=== PATIENT | male | born 1940 | race Caucasian/White ===

== ENCOUNTER 2020-08-22 11:59 | Emergency (ER) | payer MEDICARE, OTHER ==
[~2020-08-22] VITALS: Ht 182.9 cm; Wt 92.5 kg
[~2020-08-22 11:59] MED LIST: ALBU90OI6 INH; ALEN70 PO; ALL DAY ALLERGY10 M1 PO; ALLO300; ALLO300 PO; ALTOPREV PO; AMLO5 PO; ASPI325 PO; ASPI325EC PO; ASPI500 PO; ASPI81EC; ASPI81EC PO; Altoprev60 MG PO; CALCA500CH PO; CALCIUM PO; CETI10 PO; CYAN1000 PO; CYCL10 PO; DOCU100 PO; ECOTRIN PO; ERGO400 PO; FLUSAL1005; FLUSAL2505 IH; FLUSAL2505 INH; FOLI400 PO; HYDACE5; HYDACE5 PO; HYDACE5325 PO; HYDACE7.5 PO; IBUP800 PO; LEVO750; LISI5; MELA3 PO; META800 PO; METO100ER; METO50ER PO; Medi-Meclizine25 MG PO; NAPR500 PO; NICO21TP; OMEP20ER; OMEP20ER PO; OMEPRAZOLE MAGN20 MG PO; OXYACE5T PO; PRAV20; SACC250C PO; SENN187; SERT100; SERT100 PO; WARF5 PO; Zithromax250 MG PO; Zofran4 MG PO
[2020-08-22 13:27] LABS: BASOPHILS ABSOLUTE AUTO 0.04 K/mm3 (0.00-0.23); BASOPHILS PERCENT AUTO 1 % (0-2); EOSINOPHILS ABSOLUTE AUTO 0.21 K/mm3 (0.00-0.68); EOSINOPHILS PERCENT AUTO 4 % (0-6); Hematocrit 38.9 % (37.0-53.0); IMMATURE GRAN ABSOLUTE AUTO 0.02 K/mm3 (0.00-0.10); IMMATURE GRAN PERCENT AUTO 0 % (0-1); LYMPHOCYTES PERCENT AUTO 32 % (21-46); MONOCYTES ABSOLUTE AUTO 0.43 K/mm3 (0.16-1.47); MONOCYTES PERCENT AUTO 7 % (4-13); Mean Corpuscular HGB 31.6 pg (26.0-34.0); Mean Corpuscular HGB Conc 33.4 g/dL (31.5-36.5); Mean Corpuscular Volume 95 fL (80-100); Mean Platelet Volume 10.6 fL (9.1-12.4); NEUTROPHILS ABSOLUTE AUTO 3.36 K/mm3 (1.96-9.15); NEUTROPHILS PERCENT AUTO 56 % (41-73); Platelet Count 140 K/mm3 (150-400); RDW Coefficient Variation 13.4 % (11.7-14.2); RDW Standard Deviation 46.5 fL (35.1-46.3); Red Blood Cell Count 4.11 M/mm3 (4.30-5.90); White Blood Cell Count 5.96 K/mm3 (4.00-11.30)
[2020-08-22 13:58] LABS: Alanine Aminotransfer (ALT/SGP 14 U/L (12-78); Albumin, Blood 3.8 g/dL (3.4-5.0); Albumin/Globulin Ratio 1.3 (0.8-1.8); Alk Phos 44 U/L (50-136); Anion Gap 1 mmol/L (6-16); Aspartate Aminotrans (AST/SGOT 13 U/L (12-37); Bilirubin, Total 0.4 mg/dL (0.1-1.0); Blood Urea Nitrogen 15 mg/dL (8-24); CO2, Blood 32 mmol/L (21-32); Calcium, Blood 8.8 mg/dL (8.5-10.1); Chloride, Blood 106 mmol/L (98-108); Creatinine, Blood 1.07 mg/dL (0.60-1.20); Glomerular Filtration Rate >60 (60-); Glucose, Blood 101 mg/dL (70-99); Potassium, Blood 4.2 mmol/L (3.5-5.5); Sodium, Blood 139 mmol/L (136-145); Total Protein, Blood 6.8 g/dL (6.4-8.2)
== END 2020-08-22 15:14 | disposition home or self-care (01) ==
LOC: ER 11:59
PROVIDERS: Physician Assistant
DX: I63.89 Other cerebral infarction (principal); H53.9 Unspecified visual disturbance; R42 Dizziness and giddiness; J44.9 Chronic obstructive pulmonary disease, unspecified; E78.00 Pure hypercholesterolemia, unspecified; K21.9 Gastro-esophageal reflux disease without esophagitis; F17.210 Nicotine dependence, cigarettes, uncomplicated; Z88.8 Allergy status to other drugs, medicaments and biological substances; Z79.899 Other long term (current) drug therapy; Z79.82 Long term (current) use of aspirin; Z86.73 Personal history of transient ischemic attack (TIA), and cerebral infarction without residual deficits
CPT/HCPCS: 36415; 70450; 80053; 85025; 93005; 93010; 99284-25

== ENCOUNTER 2020-12-01 10:14 | Day surgery (SDC) | payer MEDICARE, OTHER ==
[~2020-12-01] VITALS: Ht 177.8 cm; Wt 92.1 kg
[~2020-12-01 10:14] MED LIST changes: +ADVAIR INH; +ALBU90OI INH; +GUAI600T33 PO; +SPIRIVA INH
--- NOTE | 2020-12-01 11:04 | NUR ---
PATIENTE HERE FOR A DEAN. PRE OPERATIVE CHARTING, PIV INSERTED AND BASLINE VS OBTAINED.
--- NOTE | 2020-12-01 12:13 | NUR ---
1214 DEAN COMPLETED, RECOVERY BEGUN. CONTINUOUS BEDSIDE MONITORING AND O2
--- NOTE | 2020-12-01 12:20 | NUR ---
RT AT THE BEDSIDE FOR A BREATHING TREATMENT FOR WHEEZING. HOB UP AND TREATMENT IN PROGRESS. ANESTHESIA REMIANS AT THE BEDSIDE.
== END 2020-12-02 00:20 | disposition home or self-care (01) ==
LOC: MHTC 10:14 → ORD 10:14 → ORSCMMR 10:14 → MHTC 10:30 → ORSCMMR 10:30
DX: I34.0 Nonrheumatic mitral (valve) insufficiency (principal); I63.9 Cerebral infarction, unspecified; I10 Essential (primary) hypertension; E78.5 Hyperlipidemia, unspecified; F17.200 Nicotine dependence, unspecified, uncomplicated; Z88.8 Allergy status to other drugs, medicaments and biological substances
CPT/HCPCS: 93312; 93325; 94640; A9270; J2704; J7120

== ENCOUNTER 2021-04-25 07:35 | Day surgery (SDC) | payer MEDICARE, OTHER ==
[~2021-04-25] VITALS: Ht 177.8 cm; Wt 89.3 kg
== END 2021-04-25 10:03 | disposition home or self-care (01) ==
LOC: ORSCSDS 07:35
PROVIDERS: Ophthalmology
PROC: 08RJ3JZ Replacement of Right Lens with Synthetic Substitute, Percutaneous Approach (ICD-10-PCS; principal; 2021-04-25 09:00)
DX: H25.11 Age-related nuclear cataract, right eye (principal); I10 Essential (primary) hypertension; Z86.73 Personal history of transient ischemic attack (TIA), and cerebral infarction without residual deficits; G47.33 Obstructive sleep apnea (adult) (pediatric); I63.9 Cerebral infarction, unspecified; J44.9 Chronic obstructive pulmonary disease, unspecified; F17.210 Nicotine dependence, cigarettes, uncomplicated; Z79.82 Long term (current) use of aspirin; Z79.899 Other long term (current) drug therapy
CPT/HCPCS: J2001; J2250; J3301; J7040; V2632

== ENCOUNTER 2021-05-16 08:16 | Day surgery (SDC) | payer MEDICARE, OTHER ==
[~2021-05-16] VITALS: Ht 177.8 cm; Wt 89.5 kg
[~2021-05-16 08:16] MED LIST changes: +Crestor20 MG PO; +Flonase 0.05% N16 GM; +MECL25 PO; +ONDA4 PO; +ZYRTEC10 M2 PO
--- NOTE | 2021-05-16 08:38 | NUR ---
05/16/21 0838 Nina Guillermo TETRACAINE AT 0828 AND PLEDGET AT 0829 BOTH ADMINISTERED TOP LEFT EYE PER ORDERS
== END 2021-05-16 10:16 | disposition home or self-care (01) ==
LOC: ORSCSDS 08:16
PROVIDERS: Ophthalmology
PROC: 08RJ3JZ Replacement of Right Lens with Synthetic Substitute, Percutaneous Approach (ICD-10-PCS; principal; 2021-05-16 09:30)
DX: H25.12 Age-related nuclear cataract, left eye (principal); J44.9 Chronic obstructive pulmonary disease, unspecified; Z86.73 Personal history of transient ischemic attack (TIA), and cerebral infarction without residual deficits; I10 Essential (primary) hypertension; I63.9 Cerebral infarction, unspecified; Z87.891 Personal history of nicotine dependence; Z79.82 Long term (current) use of aspirin; Z79.899 Other long term (current) drug therapy
CPT/HCPCS: J2001; J2250; J3010; J3301; J7040; V2632

== ENCOUNTER 2022-01-19 11:18 | Emergency (ER) | payer MEDICARE, OTHER ==
[~2022-01-19] VITALS: Ht 177.8 cm; Wt 93.0 kg
== END 2022-01-19 13:10 | disposition home or self-care (01) ==
LOC: ER 11:18
DX: R04.0 Epistaxis (principal); J44.9 Chronic obstructive pulmonary disease, unspecified; K21.9 Gastro-esophageal reflux disease without esophagitis; F17.210 Nicotine dependence, cigarettes, uncomplicated; Z79.899 Other long term (current) drug therapy; Z88.8 Allergy status to other drugs, medicaments and biological substances; Z79.82 Long term (current) use of aspirin; Z86.73 Personal history of transient ischemic attack (TIA), and cerebral infarction without residual deficits
CPT/HCPCS: 36415; A9270

== ENCOUNTER 2022-01-20 20:11 | Inpatient (IN) | payer MEDICARE, OTHER ==
[~2022-01-20] VITALS: Ht 177.8 cm; Wt 88.2 kg
[2022-01-20 20:25] LABS: Calcium, Ionized (POC) 1.06 mmol/L (1.10-1.46); Chloride (POC) 106 mmol/L (98-108); Creatinine (POC) 1.2 mg/dL (0.8-1.3); Glucose (ISTAT POC) 152 mg/dL (70-99); Hemoglobin (POC) 12.9 g/dL (13.5-17.5); Potassium (POC) 3.4 mmol/L (3.5-5.5); Sodium (POC) 141 mmol/L (135-148); Total CO2 (POC) 26 mmol/L (21-32)
[2022-01-20 20:35] LABS: BASOPHILS ABSOLUTE AUTO 0.03 K/mm3 (0.00-0.23); BASOPHILS PERCENT AUTO 1 % (0-2); EOSINOPHILS ABSOLUTE AUTO 0.22 K/mm3 (0.00-0.68); EOSINOPHILS PERCENT AUTO 4 % (0-6); Hematocrit 35.9 % (37.0-53.0); Hemoglobin 12.2 g/dL (13.5-17.5); IMMATURE GRAN ABSOLUTE AUTO 0.02 K/mm3 (0.00-0.10); IMMATURE GRAN PERCENT AUTO 0 % (0-1); LYMPHOCYTES ABSOLUTE AUTO 2.09 K/mm3 (0.84-5.20); LYMPHOCYTES PERCENT AUTO 34 % (21-46); MONOCYTES ABSOLUTE AUTO 0.45 K/mm3 (0.16-1.47); MONOCYTES PERCENT AUTO 7 % (4-13); Mean Corpuscular HGB 31.1 pg (26.0-34.0); Mean Corpuscular Volume 92 fL (80-100); Mean Platelet Volume 10.4 fL (9.1-12.4); NEUTROPHILS ABSOLUTE AUTO 3.42 K/mm3 (1.96-9.15); NEUTROPHILS PERCENT AUTO 55 % (41-73); Platelet Count 144 K/mm3 (150-400); RDW Coefficient Variation 13.6 % (11.7-14.2); Red Blood Cell Count 3.92 M/mm3 (4.30-5.90); White Blood Cell Count 6.23 K/mm3 (4.00-11.30)
[2022-01-20 20:51] LABS: Albumin, Blood 3.4 g/dL (3.4-5.0); Albumin/Globulin Ratio 1.1 (0.8-1.8); Bilirubin, Total 0.3 mg/dL (0.1-1.0); Bun/Creatinine Ratio 9.7 (12.0-20.0); Calcium, Blood 8.7 mg/dL (8.5-10.1); Creatine Kinase MB 1.7 ng/mL (0.0-3.6); Creatinine, Blood 1.13 mg/dL (0.60-1.20); Globulin, Blood 3.2 g/dL (2.2-4.0); Potassium, Blood 3.5 mmol/L (3.5-5.5); Total Protein, Blood 6.6 g/dL (6.4-8.2)
[2022-01-20 20:52] LABS: International Normalized Ratio 0.98; Prothrombin Time Results 10.3 Sec (9.7-11.5)
[2022-01-20 23:57] LABS: Source, Urine Foley catheter
[2022-01-21 00:04] LABS: Bilirubin, Urine Neg (Neg); Blood, Urine 1+ (Neg); Glucose Qualitative, Urine Neg (Neg); Ketones, Urine Neg (Neg); Leukocyte Esterase, Urine Neg (Neg); Nitrite, Urine Neg (Neg); Protein, Urine 1+ (Neg); Urobilinogen, Urine NORM (Normal)
[2022-01-21 00:24] LABS: Appearance, Urine Hazy (Clear); Color, Urine Pale Yellow (P-Yellow)
[2022-01-21 00:25] LABS: Amorphous Mod (0-Heavy); Bacteria Rare /hpf; Mucus Light (0-Heavy); Red Blood Cells, Urine 0-2 /hpf (0-2); Squamous Epithelial Cells Not Seen /hpf (Few); White Blood Cells, Urine Not Seen /hpf (0-5)
--- NOTE | 2022-01-21 00:47 | NUR ---
NEW ADMIT FROM SYSTEMS INTEGRATION ADVISOR TO ICU 12: NEW PT ADMIT FROM SYSTEMS INTEGRATION ADVISOR TO ICU 12 ARRIVED TO UNIT AT 2217. PT POST PCI WITH A STENT PLACED IN PROX-MID RCA. TR BAND IN PLACE OVER R. RADIAL ACCESS THAT IS ASSESSED WITH SYSTEMS INTEGRATION ADVISOR RN UPON ARRIVIAL; SITE LOOKS GOOD WITH NO BLEEDING OR HEMATOMA NOTED. PER DR COLVIN TR BAND WILL REMAIN IN PLACE FOUR HOURS AFTER INITIAL TR BAND PLACEMENT THAT TOOK PLACE AT 2159. PT IS INTUBATED AND SEDATED UPON ARRIVAL; PROPOFOL GTT AT 40 MCG AND VENT SETTINGS AC/VC 16/550/5/60% UPON ARRIVAL, ETT 8.0, 24 @ GUMS AT ARRIVAL. CXR ORDERED AND PER DR COLON ETT ADVANCED BY FITZ JAMISON BY 2 CM, ETT PLACEMENT 26 @ GUMS AT THIS TIME. SPO2 98<, RR 16-18, AND LUNG SOUNDS CLEAR T/O. PT ON ZOLL MONITOR WHEN HE ARRIVED, AND THEN PLACED ON BEDSIDE MONITOR. DEFIB PADS LEFT IN PLACE. PT HR IN THE 60'S WITH SBP 110'S AT THIS TIME. PT IS RESPONDING TO PAIN/TOUCH STIMULI AND PULLING AWAY. PT NOT IN RESTRAINTS WHEN BROUGHT TO THE UNIT AND PLACED IN BILAT SOFT WRIST RESTRAINTS AT 2231. PT CONTINUES TO PULL ON RESTRAINTS, PROPOFOL GTT TITRATED UP TO 45 AT THIS TIME. PT HAS OGT IN PLACE UPON ARRIVAL THAT IS CLAMPED; CXR ORDERED AT THIS TIME TO CONFIRM OGT AND ETT PLACEMENT. PT HAS HYPOACTIVE BS IN ALL QUADRANTS; ABD ROUND, SOFT AND NON-TENDER. TEMP VARGAS PLACED BY THIS RN WITH URINE SAMPLE SENT TO LAB; VARGAS DRAINING TO GRAVITY WITH URINE CLEAR AND YELLOW. PT SKIN WARM, INTACT AND PPP X 4. PT HAS TWO PIV: 18 G RAC, 20 G LH. PT CAREGIVER, ROWENA AT BEDSIDE AFTER PT IS SETTLED AND UPDATED ON PT'S STATUS POST PCI, ALL QUESTIONS ANSWERED AT THIS TIME. PT'S WILL BE BY IN THE MORNING. BED LOWERED, WILL CONTINUE TO MONITOR.
[2022-01-21 03:32] LABS: BASOPHILS ABSOLUTE AUTO 0.03 K/mm3 (0.00-0.23); BASOPHILS PERCENT AUTO 1 % (0-2); EOSINOPHILS ABSOLUTE AUTO 0.12 K/mm3 (0.00-0.68); EOSINOPHILS PERCENT AUTO 2 % (0-6); Hematocrit 32.7 % (37.0-53.0); Hemoglobin 11.3 g/dL (13.5-17.5); IMMATURE GRAN ABSOLUTE AUTO 0.01 K/mm3 (0.00-0.10); IMMATURE GRAN PERCENT AUTO 0 % (0-1); LYMPHOCYTES ABSOLUTE AUTO 1.62 K/mm3 (0.84-5.20); LYMPHOCYTES PERCENT AUTO 27 % (21-46); MONOCYTES ABSOLUTE AUTO 0.46 K/mm3 (0.16-1.47); MONOCYTES PERCENT AUTO 8 % (4-13); Mean Corpuscular HGB 30.6 pg (26.0-34.0); Mean Corpuscular HGB Conc 34.6 g/dL (31.5-36.5); Mean Corpuscular Volume 89 fL (80-100); Mean Platelet Volume 10.3 fL (9.1-12.4); NEUTROPHILS ABSOLUTE AUTO 3.85 K/mm3 (1.96-9.15); NEUTROPHILS PERCENT AUTO 63 % (41-73); Platelet Count 116 K/mm3 (150-400); RDW Coefficient Variation 13.7 % (11.7-14.2); RDW Standard Deviation 44.5 fL (35.1-46.3); Red Blood Cell Count 3.69 M/mm3 (4.30-5.90); White Blood Cell Count 6.09 K/mm3 (4.00-11.30)
[2022-01-21 03:52] LABS: Bun/Creatinine Ratio 11.9 (12.0-20.0); Calcium, Blood 8.5 mg/dL (8.5-10.1); Creatinine, Blood 1.01 mg/dL (0.60-1.20); Potassium, Blood 3.1 mmol/L (3.5-5.5)
--- NOTE | 2022-01-21 06:24 | NUR ---
SHIFT SUMMARY: NO ACUTE CHANGES SINCE ARRIVAL TO THE UNIT FROM MANAGER CHILD. TR BAND DEFLATED COMPLETELY AND REMOVED AT 0400; TEGADERM IN PLACE AND SITE IS WITHOUT BLEEDING, SMALL HEMATOMA AROUND INSERTION SITE ABOUT 3 CM IN DIAMETER. VENT SETTINGS AC/VC 14/510/5/35% WITH RR 14-16 AND SPO2 98<. PT HAS CLEAR LUNG SOUNDS WITH SMALL EPISODES OF COUGHING WITH REPOSITIONING. VSS THROUGHOUT SHIFT. WILL CONTINUE TO MONITOR UNTIL ONCOMING RN ARRIVES.
--- NOTE | 2022-01-21 06:28 | NUR ---
SHIFT SUMMARY: NO ACUTE CHANGES THIS SHIFT. PT REMAINS ON PRECEDEX GTT @ 0.7. PT ABLE TO SQUEEZE HANDS AND ALERT TO VERBAL STIMULI. PT VERBILIZED ANXIETY/FEAR IN THE MIDDLE OF THE NIGHT AND WAS ABLE TO CLEARLY STATE NAME AND BIRTHDATE CORRECTLY; PT MEDICATED WITH 0.5 MG OF ATIVAN AT THAT TIME. PT WAS ABLE TO SETTLE AND GO BACK TO SLEEP. VSS STABLE THROUGHOUT THE SHIFT, PT REMAINS TACHYPNENIC THROUGHOUT SHIFT WITH RR 30-34 AND SPO2 94<. WILL CONTINUE TO MONITOR UNTIL ONCOMING RN ARRIVES.
--- NOTE | 2022-01-21 07:15 | NUR ---
Assumed care of pt at 0700 Report recieved from offgoing RN at bedside. Pt is sedated on Propofol at 35mcg/kg/min. On vent AC/VC 14/510 peep 5, FIO2 30%. SR-SB with first degree AV block. Next EKG due this am, BP currently 127/73. OGT in place to LIS. Temp probe de oliveira draining clear yellow urine. Has 2 PIV infusing Propofol and Potassium replacement as well as NS TKO. Right radial side with no changes, small hematoma has not been increasing in size, pt has armboard in place. Call placed to spouse Star to provide update on pt status. Spouse has limited ability to care for self and has a caregiver at home, she would like to come in after pt is extubated. Advised I would keep her updated. Dr. Tejada to bedside. Orders recieved and placed for Lactate, ABG, CXR and decrease sedation/begin weaning. Plan to extubate today if appropriate. RN to continue to monitor.
[2022-01-21 07:36] LABS: PCO2 Arterial 39 mmHg (35-45); PO2 Arterial 91 mmHg (80-100); pH Blood Arterial 7.46 (7.35-7.45)
--- NOTE | 2022-01-21 09:49 | NUR ---
PROPOFOL ON STANDBY PT HAS TOLERATED NO SEDATION WELL. CALM, COOPERATIVE AND FOLLOWING COMMANDS. HAD EKG, LACTATE, ABG AND ECHO THIS AM. ON SPONTANEOUS VENT SETTINGS. DR. OVERTON NOTIFIED OF ABOVE. WILL PLAN TO EXUTBATE THIS AM APPROPRIATE. DR. ESTRADA IN TO SEE PT AT BEDSIDE. NO NEW ORDERS. RN TO CONTINUE TO FOLLOW
--- NOTE | 2022-01-21 16:21 | NUR ---
STATUS CHANGE PT REMAINS A/O X4, HARD OF HEARING, FAMILY WILL BRING HEARING AIDS TOMORROW. SINUS RHYTHM WITH 1ST DEGREE AV BLOCK. SBP 130'S. DENIES PAIN. IS ON ROOM AIR WITH OXYGEN SATURATIONS OF 98%. LUNGS CLEAR THROUGHOUT, LOOSE COUGH, NO SPUTUM PRODUCTION. PT IS A DAILY SMOKER AND HAS A CHRONIC COUGH PER FAMILY. HAS BEEN NPO DUE TO PRESENCE OF ETT, TOLERATING SMALL SIPS SINCE EXTUBATION. TEMP PROBE VARGAS IN PLACE DRAINING CLEAR YELLOW URINE. TMAX 100.O. RECIEVED DOWNGRADE TO PCU ORDERS FROM . AWAITING BED AVAILABILITY FOR TRANSFER. RN TO CONTINUE TO MONITOR.
--- NOTE | 2022-01-21 18:56 | NUR ---
END OF SHIFT SUMMARY PT REMAINS A/OX4, SLEPT FOR SEVERAL HOURS AFTER EXTUBATION, DENIES PAIN, C/O SLIGHT DISCOMFORT IN HIS ABDOMEN, PT UNABLE TO DEFINE FURTHER. DENIES NAUSEA. SINUS RHYTHM, BP WNL. LUNGS CLEAR, HAS LOOSE NON-PRODUCTIVE COUGH. PT IS CURRENT SMOKER AND HAS A CHRONIC COUGH PER FAMILY. DIET ORDERED THIS EVENING, PT IS HUNGRY. HAS TEMP PROBE VARGAS, UO 650ML THIS SHIFT CLEAR YELLOW. SKIN INTACT. RIGHT RADIAL CATH SITE IS C/D/I. SMALL HEMATOMA WITH NO CHANGE. NOTIFIED DR. ESTRADA OF TEMP 101. TYLENOL PO ORDERED AND GIVEN, BLOOD CULTURES X2 ORDERED AND COMPLETED BY LAB. FAMILY UPDATED ON ALL ASPECTS OF CARE. ADMISSION ASSESSMENT COMPLETED VIA PHONE WITH PT'S . FAMILY BROUGHT IN PT'S HEARING AIDS AND PT HAS GLASSES AT BEDSIDE.
--- NOTE | 2022-01-21 19:15 | NUR ---
ASSUMPTION OF CARE PT IS ALERT AND ORIENTED X4, HARD OF HEARING. HE IS SITTING UP IN BED, AFFECT APPROPRIATE AND ABLE TO MAKE NEEDS KNOWN. NO COMPLAINTS OF CHEST PAIN/PRESSURE. SR ON THE MONITOR, BP WAL. MD ANTHONY MADE AWARE ON PRIOR SHIFT. PT ON ROOM AIR, OXYGEN SAT 94%. NO S/S OF ACUTE DISTRESS NOTED AT THIS TIME. PT IS SL. VARGAS CATH INTACT PATENT AND DRAINING YELLOW URINE TO GRAVITY BELOW THE LEVEL OF THE BLADDER.
--- NOTE | 2022-01-21 21:31 | NUR ---
PT CONTINUES TO BE AFEBRILE AT 101 CORE TEMP DESPITE BEING MEDICATED W/TYLENOL EARLIER IN THE DAY. HE IS COMPLAINING OF NAUSEA WELL AND GENERALIZED MALAISE. DR BROWNING NOTIFIED.
[2022-01-21 22:01] LABS: BASOPHILS ABSOLUTE AUTO 0.02 K/mm3 (0.00-0.23); BASOPHILS PERCENT AUTO 0 % (0-2); EOSINOPHILS ABSOLUTE AUTO 0.07 K/mm3 (0.00-0.68); EOSINOPHILS PERCENT AUTO 1 % (0-6); Hematocrit 32.6 % (37.0-53.0); Hemoglobin 11.1 g/dL (13.5-17.5); IMMATURE GRAN ABSOLUTE AUTO 0.01 K/mm3 (0.00-0.10); IMMATURE GRAN PERCENT AUTO 0 % (0-1); LYMPHOCYTES ABSOLUTE AUTO 1.35 K/mm3 (0.84-5.20); LYMPHOCYTES PERCENT AUTO 18 % (21-46); MONOCYTES ABSOLUTE AUTO 0.51 K/mm3 (0.16-1.47); MONOCYTES PERCENT AUTO 7 % (4-13); Mean Corpuscular Volume 91 fL (80-100); Mean Platelet Volume 10.2 fL (9.1-12.4); NEUTROPHILS ABSOLUTE AUTO 5.42 K/mm3 (1.96-9.15); NEUTROPHILS PERCENT AUTO 74 % (41-73); Platelet Count 108 K/mm3 (150-400); RDW Coefficient Variation 13.8 % (11.7-14.2); RDW Standard Deviation 46.2 fL (35.1-46.3); Red Blood Cell Count 3.58 M/mm3 (4.30-5.90); White Blood Cell Count 7.38 K/mm3 (4.00-11.30)
[2022-01-21 22:20] LABS: Source, Urine Foley catheter
[2022-01-21 23:20] LABS: Appearance, Urine Hazy (Clear); Bilirubin, Urine Neg (Neg); Blood, Urine 5+ (Neg); Color, Urine Yellow (P-Yellow); Glucose Qualitative, Urine Neg (Neg); Ketones, Urine 1+ (Neg); Leukocyte Esterase, Urine 3+ (Neg); Nitrite, Urine Neg (Neg); Protein, Urine 2+ (Neg); Urobilinogen, Urine NORM (Normal)
[2022-01-22 00:33] LABS: Bacteria Mod /hpf; Red Blood Cells, Urine 25-50 /hpf (0-2); Squamous Epithelial Cells Rare /hpf (Few)
[2022-01-22 03:48] LABS: BASOPHILS ABSOLUTE AUTO 0.02 K/mm3 (0.00-0.23); BASOPHILS PERCENT AUTO 0 % (0-2); EOSINOPHILS ABSOLUTE AUTO 0.12 K/mm3 (0.00-0.68); EOSINOPHILS PERCENT AUTO 2 % (0-6); Hematocrit 33.4 % (37.0-53.0); Hemoglobin 10.9 g/dL (13.5-17.5); IMMATURE GRAN ABSOLUTE AUTO 0.02 K/mm3 (0.00-0.10); IMMATURE GRAN PERCENT AUTO 0 % (0-1); LYMPHOCYTES ABSOLUTE AUTO 1.36 K/mm3 (0.84-5.20); LYMPHOCYTES PERCENT AUTO 19 % (21-46); MONOCYTES ABSOLUTE AUTO 0.61 K/mm3 (0.16-1.47); MONOCYTES PERCENT AUTO 8 % (4-13); Mean Corpuscular HGB 30.1 pg (26.0-34.0); Mean Corpuscular HGB Conc 32.6 g/dL (31.5-36.5); Mean Corpuscular Volume 92 fL (80-100); Mean Platelet Volume 10.6 fL (9.1-12.4); NEUTROPHILS ABSOLUTE AUTO 5.11 K/mm3 (1.96-9.15); NEUTROPHILS PERCENT AUTO 71 % (41-73); Platelet Count 102 K/mm3 (150-400); RDW Standard Deviation 47.2 fL (35.1-46.3); Red Blood Cell Count 3.62 M/mm3 (4.30-5.90); White Blood Cell Count 7.24 K/mm3 (4.00-11.30)
--- NOTE | 2022-01-22 06:44 | NUR ---
SHIFT SUMMERY PT WAS STARTED ON ANTIBIOTICS OVERNIGHT DUE TO SPIKING A TEMP. HE ALSO HAD NAUSEA THAT WAS TREATED ONCE W/ZOFRAN AND RESOLVED. HE HAS BEEN ALERT AND ORIENTED THROUGHOUT THE NIGHT. HE DID NOT REST WELL. A UA WAS SENT TO LAB AND BLOOD CULTURES WERE DONE YESTERDAY WELL. PT HAS A NON PRODUCTIVE COUGH W/OXYGEN SAT >92% ON ROOM AIR. NO COMPLAINTS OF CHEST PAIN/PRESSURE OR S/S OF ACUTE CARDIAC DISTRESS OVERNIGHT. HE HAS BEEN SR ON THE GENERAL PURCHASING AGENT W/BP WNL.
--- NOTE | 2022-01-22 07:15 | NUR ---
Assumed care of pt at 0715. Bedside report recieved from ANDREW Gordon. Pt is alert and oriented. Denies chest pain. Has had some nausea during the night that was relieved with Zofran. V/S stable, temp decreasing after Zosyn started overnight. UA sent. Pt c/o being tired this am. Cardiology in to see pt, discusses possible return to collaborative physician tomorrow 01/23 vs. outpatient Cath. He will discuss further with pt and family today. RN to continue to monitor.
--- NOTE | 2022-01-22 14:22 | NUR ---
Report called to PCU Pt to be transferred to PCU 2. Report provided to receiving RN. Pt's updated. Pt agreeable to POC. All belongings sent with pt including glasses, clothing and hearing aids.
--- NOTE | 2022-01-22 17:41 | NUR ---
SHIFT SUMMARY; ASSUMED CARE IN AFTERNOON FOR IN HOUSE TRANSFER FROM ICU. A/A/OX4. DENIES CP, REPORTS INTERMITATLY FEELING SOB, SATS REMAINING IN MID 90'S ON ROOM AIR. VARGAS IN PLACE DRAINING TO GRAVITY. RIGHT RADIAL ANGIO SITE DRESSING DRY AND INTACT WITHOUT SWELLING. BRUISING TO WRIST AREA NOTED. VSS, WILL CONTINUE TO MONITOR AND TREAT UNTIL CHANGE OF SHIFT.
--- NOTE | 2022-01-23 07:14 | NUR ---
DISPATCH SUPERVISOR SUMMARY ASSUMED CARE OF PT AT 1900. HE IS ALERT AND ORIENTED X4, THOUGH HARD OF HEARING. PT DENIES ANY CHEST PAIN THIS SHIFT BUT DOES HAVE SOME NAUSEA, IMPROVED WITH ZOFRAN. BP WAS ELEVATED THIS MORNING SO ORDER OBTAINED FOR PRN HYDRALAZINE AND ADMINISTERED. HE HAS BEEN SINUS ON THE TELE. NO ACUTE EVENTS. PT HAD A FEW EPISODES OF SHORTNESS OF BREATH, IMPROVED WITH BREATHING TREATMENTS.
--- NOTE | 2022-01-23 17:37 | NUR ---
SHIFT SUMMARY; ASSUMED CARE AT 0700. A/A/OX3 WITH INTERMITANT CONFUSION. DENIES CP OR SOB. EVALUATED BY CARDIOLOGY TODAY, RECOMMENDS ANGIO OUTPATIENT. UP TO CHAIR AT BEDSIDE, REPOSITIONS SELF NEEDED. VARGAS IN PLACE DRAINING TO GRAVITY. VSS, NO ACUTE MEDICAL CHANGES, STATUS CHANGED TO MEDICAL WITH TELEMETRY. WILL CONTINUE TO MONITOR AND TREAT UNTIL CHANGE OF SHIFT.
[2022-01-24 04:23] LABS: Hematocrit 32.4 % (37.0-53.0); Hemoglobin 11.1 g/dL (13.5-17.5); Mean Corpuscular HGB 30.6 pg (26.0-34.0); Mean Corpuscular HGB Conc 34.3 g/dL (31.5-36.5); Mean Corpuscular Volume 89 fL (80-100); Mean Platelet Volume 10.9 fL (9.1-12.4); Platelet Count 140 K/mm3 (150-400); RDW Coefficient Variation 13.8 % (11.7-14.2); RDW Standard Deviation 45.2 fL (35.1-46.3); Red Blood Cell Count 3.63 M/mm3 (4.30-5.90); White Blood Cell Count 7.21 K/mm3 (4.00-11.30)
[2022-01-24 04:41] LABS: Bun/Creatinine Ratio 14.4 (12.0-20.0); Calcium, Blood 8.9 mg/dL (8.5-10.1); Creatinine, Blood 1.04 mg/dL (0.60-1.20)
--- NOTE | 2022-01-24 06:23 | NUR ---
TAR AND AMMONIA PUMP OPERATOR SUMMARY ASSUMED CARE OF PT AT 1900. HE WAS ALERT AND ORIENTED X4 AT THE START OF THE SHIFT BUT APPEARS TO BE SLIGHTLY MORE CONFUSED AT NIGHT, ASKING FOR DIRECTIONS TO "GO THERE" AND TRYING TO PUT HIS TRASH CAN INTO BED WITH HIM. PT DENIES ANY CHEST PAIN/PRESSURE. HE DENIES ANY ABDOMINAL PAIN OR NAUSEA THIS SHIFT. THE PT REQUIRED ONE DOSE OF HYDRALAZINE AT BEDTIME WITH IMPROVEMENT IN BP. HE RECEIVED ONE DOSE OF IV ABX THIS SHIFT. THIS RN BEGAN BLADDER TRAINING DUE TO POSSIBILITY OF DC HOME, BUT PT HAS HAD VERY LITTLE OUTPUT THIS SHIFT. HE HAS BEEN PACED ON TELE. NO ACUTE EVENTS.
--- NOTE | 2022-01-24 18:07 | NUR ---
SHIFT SUMMARY PT A/OX3-4 AND COOPERATIVE OF CARE. PT BP ELEVEATED THIS MORNING, TREATED PER EMAR. BP STABLE THIS EVENING. OTHER VSS THROUGHOUT SHIFT WITH 02 SATS >93% ON RA. NO REPORT OF CHEST PAIN/PRESSURE THROUGHOUT SHIFT. PT REPORTS SOB WITH EXERTION TOWARDS END OF SHIFT, STATING "WE NEED TO GET THIS ALL MOVING FORWARD SO MY BREATHING GETS BETTER." PT HAS VARGAS DRAINING TO GRAVITY, YELLOW URINE. NO ACUTE ISSUE THOUGHOUT SHIFT.
--- NOTE | 2022-01-24 23:26 | NUR ---
PT BEGAN COMPLAINING OF A SHORT PERIOD OF MIDSTERNAL CHEST PAIN WITH SOME DIZZINESS, VITAL SIGNS TAKEN, EKG OBTAINED AND SHOWN TO DR. PULIDO. STAT TROPONIN AND POTASSIUM LABS ORDERED AND SENT. WILL CONTINUE TO MONITOR. PT DENIES ANY CURRENT CHEST PAIN.
[2022-01-25 02:14] LABS: Anti-Xa UFH, PHA Monitoring <0.10 IU/mL; Prothrombin Time Results 10.5 Sec (9.7-11.5)
--- NOTE | 2022-01-25 02:18 | NUR ---
SPOKE WITH DR FRAZIER REGARDING PT SYMPTOMS AND INTERVENTIONS. PT IN NO ACUTE DISTRESS AT THIS TIME - CHEST PAIN RESOLVED. HE IS AGREEABLE WITH WAITING TO CALL CARDIOLOGY UNTIL THE MORNING UNLESS PT DEVELOPS MORE ACUTE SYMPTOMS.
[2022-01-25 03:50] LABS: Hematocrit 34.4 % (37.0-53.0); Hemoglobin 11.7 g/dL (13.5-17.5); Mean Corpuscular HGB 30.6 pg (26.0-34.0); Mean Corpuscular Volume 90 fL (80-100); Mean Platelet Volume 10.7 fL (9.1-12.4); Platelet Count 167 K/mm3 (150-400); RDW Coefficient Variation 13.8 % (11.7-14.2); RDW Standard Deviation 44.9 fL (35.1-46.3); Red Blood Cell Count 3.82 M/mm3 (4.30-5.90); White Blood Cell Count 7.72 K/mm3 (4.00-11.30)
[2022-01-25 04:23] LABS: Albumin, Blood 3.1 g/dL (3.4-5.0); Anion Gap 6 mmol/L (6-16); Blood Urea Nitrogen 18 mg/dL (8-24); CHOL/HDL RATIO 3.8; CO2, Blood 26 mmol/L (21-32); Calcium, Blood 8.7 mg/dL (8.5-10.1); Chloride, Blood 109 mmol/L (98-108); Cholesterol 125 mg/dL (50-200); Glomerular Filtration Rate 75 (60-); Glucose, Blood 118 mg/dL (70-99); HDL Cholesterol 33 mg/dL (>39); LDL/HDL RATIO 1.9; Low Density Lipoprotein Chol 62 mg/dL (0-110); Magnesium, Blood 2.1 mg/dL (1.6-2.4); Phosphorus, Blood 3.2 mg/dL (2.5-4.9); Potassium, Blood 3.3 mmol/L (3.5-5.5); Sodium, Blood 141 mmol/L (136-145); Triglycerides 148 mg/dL (30-160); Very Low Density Lipoprot Chol 29 mg/dL (6-32)
--- NOTE | 2022-01-25 05:40 | NUR ---
PT WAS STATUS CHANGED TO PCU DUE TO CONTINUED CHEST PAIN AND WORK-UP
--- NOTE | 2022-01-25 05:59 | NUR ---
DECALER SUMMARY ASSUMED CARE OF PT AT 1900. HE BEGAN THE SHIFT WITH NO COMPLAINTS OF CHEST PAIN BUT REPORTED SOME CHEST PRESSURE AND SHORTNESS OF BREATH AROUND 0300 THIS MORNING AFTER AMBULATING TO THE BATHROOM. SEE RN NOTE REGARDING PT SYMPTOMS AND INTERVENTIONS. DR KASPER WAS CONTACTED REGARDING PT STATUS, LABS, AND SYMPTOMS - HE WILL CONTINUE TO BE MONITORED BY CARDIOLOGY. PT WAS PLACED ON A HEPARIN DRIP FOR ELEVATED TROPONIN AND CHEST PAIN. PT ALSO FAILED BEDSIDE SWALLOW EVAL AND WAS PLACED ON NPO STATUS FOR FURTHER EVALUATION BY SPEECH THERAPY. PT HAD A SIGNIFICANT DECREASE IN BP AND HR AFTER NITRO GIVEN FOR CHEST PAIN, AT TIMES DROPPING INTO THE HIGH 20S RANGE AND RETURNING TO THE 50S, THOUGH PT WAS IN THE 80S THROUGHOUT THE NIGHT. HE IS CURRENTLY ASLEEP AFTER BEING MEDICATED FOR NAUSEA. PT CONTINUES TO RECEIVE IV ABX FOR POSSIBLE PNA.
--- NOTE | 2022-01-25 17:42 | NUR ---
SHIFT SUMMARY PT A/OX4 AND COOPERATIVE OF CARE. VSS THROUGHOUT SHIFT WITH 02 SATS > 94% ON RA. PT REPORTED "CHEST PRESSURE" DURING THE BOTTOM SAW OPERATOR, BUT DENIES ANY CHEST PAIN/PRESSURE THIS SHIFT. NO REPORT OF SOB/DYSPNEA THROUGHOUT SHIFT, THOUGH PT VISUALLY HAS PERIODS OF DYSPNEA. PT SEEN BY DONATIONS ATTENDANT, NO INTERVENTIONS PLANNED FOR TODAY. TROPONIN EVELS TRENDING DOWN, DONATIONS ATTENDANT AWARE. PT USING URINAL WHILE IN BED FOR ELEMINATION. HEPARIN GTT RUNNING PER ORDERS.
--- NOTE | 2022-01-26 06:04 | NUR ---
ASSUMED CARE OF PT AT 1900. PT WOKE UP SLIGHTLY CONFUSED AND ATTEMPTED TO USE THE RESTROOM ON HIS OWN. PROVIDED PT WITH URINAL AND ASSISTED. HE DENIES ANY COMPLAINTS OF CHEST PAIN/PRESSURE TONIGHT. PT WAS CONTINUED ON THE HEPARIN DRIP AT 11 U/KG/HR MANAGED BY PHARMACY. PT IS ANXIOUS AND WANTING TO GO HOME. HE WOKE UP A FEW TIMES THROUGHOUT THE SHIFT CONFUSED ABOUT THE TIME OF DAY AND WORRYING ABOUT WHETHER "THE NURSE CALLED HER FOR MY RIDE." PT REMAINS SINUS IN THE 60S ON TELE. VSS. HE IS USING THE URINAL WITH SOME ASSISTANCE BUT NO BM THIS SHIFT. HE IS RECEIVING CONTINUED IV ABX AND HAS HAD A DECREASE IN COUGH THIS SHIFT. NO ACUTE EVENTS.
[2022-01-26 09:07] LABS: Hemoglobin 11.2 g/dL (13.5-17.5); Mean Corpuscular HGB Conc 33.9 g/dL (31.5-36.5); Mean Corpuscular Volume 91 fL (80-100); Mean Platelet Volume 10.8 fL (9.1-12.4); Platelet Count 170 K/mm3 (150-400); RDW Coefficient Variation 13.8 % (11.7-14.2); RDW Standard Deviation 46.7 fL (35.1-46.3); Red Blood Cell Count 3.61 M/mm3 (4.30-5.90); White Blood Cell Count 6.28 K/mm3 (4.00-11.30)
[2022-01-26 09:17] LABS: Anion Gap 5 mmol/L (6-16); Blood Urea Nitrogen 18 mg/dL (8-24); Bun/Creatinine Ratio 16.2 (12.0-20.0); CO2, Blood 27 mmol/L (21-32); Calcium, Blood 8.7 mg/dL (8.5-10.1); Chloride, Blood 110 mmol/L (98-108); Creatinine, Blood 1.11 mg/dL (0.60-1.20); Glomerular Filtration Rate 66 (60-); Glucose, Blood 106 mg/dL (70-99); Phosphorus, Blood 3.7 mg/dL (2.5-4.9); Potassium, Blood 3.5 mmol/L (3.5-5.5); Sodium, Blood 142 mmol/L (136-145)
--- NOTE | 2022-01-26 17:15 | NUR ---
SHIFT SUMMARY NO ACUTE CHANGES THIS SHIFT. PT ALERT, ANSWERS QUESTIONS APPROPRIATELY. VSS. SR/SB ON TELE. HEP GTT DC'D BY MD BROWNING THIS SHIFT. PT DENIED CP/PRESSURE. PT WORKED WITH PT. ABLE TO AMBULATED TO BATHROOM W/ FWW AND GB. PT STATES HE DID AMBULATE TO BATHROOM ONCE BY HIMSELF. PT STATES, "I DID A BAD THING. i GOT MY WALKER AND *DEMONSTRATES WALKING WITH FINGERS AND POINTS TO BATHROOM* BY MYSELF BECAUSE i KNEW i COULD DO IT. PT SPENT MORNING UP IN CHAIR. AMBULATED TO BATHROOM X2 TO HAVE BM. ABX INFUSED PER EMAR. AND OTHER FAMILY STOPPED BY TO VISIT PT. STATES PT WEARS HOME CPAP AND TAKES BREATHING TX ONCE IN AM ONCE IN EVENING. CALL LIGHT IN REACH. BED ALARM ON.
--- NOTE | 2022-01-26 19:15 | NUR ---
ASSUMED CARE OF PT @1900 FROM VANESSA Graham RN. PT SLEEPING. WHEN WOKEN FOR ASSESSMENT PT WAS CONFUSED WHERE HE WAS AND PULLING ON LINES. REDIRECTED AND PT WAS CALM AND COOPERATIVE. ANSWERED MOST QUESTIONS APPROPRIATELY. SOME MUMBLED SPEECH WHEN FIRST WAKING UP. SPO2 >94% ON RA, RR 16, HR 60'S, SBP 140'S, MAP >65. PG KAIA TKO INFUSING. IV ACCESS RAC PATENT W/SALINE LOCK.
--- NOTE | 2022-01-27 03:50 | NUR ---
PT HAD A 5.52 SEC PAUSE ON TELE. SITTING ON THE EDGE OF THE BED AND STATING HIS "CHEST WAS ON FIRE" AFTER USING THE URINAL. PT STATES HE IS HAVING A HARD TIME CATCHING HIS BREATH. 2L O2 STARTED VIA NC. SPO2 SATS >94%. PAIN RESOLVED, ECG PERFORMED, PRN MORPHINE FOR CHEST PAIN HELD. CHARGE NEFTALI MORALES BEDSIDE. PT STATED HE HAD NOT HAD PAIN LIKE THAT AND IT ALSO FELT LIKE SOMEONE WAS SITTING ON HIS CHEST BUT RESOLVED. HOB ELEVATED, CALL LIGHT IN REACH.
--- NOTE | 2022-01-27 06:28 | NUR ---
SUMMARY: NEURO/PSYCH/MOBILITY: PT A&O X4. HAS SOME CONFUSION UPON WAKING UP BUT IS EASILY REORIENTED. ABLE TO MOVE ALL EXTREMETIES AND REPOSITION SELF IN BED. GENERALIZED WEAKNESS. DENIES PAIN EXCEPT FOR THE EPISODE OF CHEST PAIN @0330. PERRL. RESP: PT HAS HX OF COPD/AYAAN AND USUALLY SLEEPS WITH A CPAP. LUNGS COARSE AND DIM AT BASES. PT HAD EPISODE OF TROUBLE "CATCHING HIS BREATH" DURING EPISODE OF CHEST PAIN @0330. 2L O2 VIA NC STARTED. RR <20, SPO2 >94%. CARDIAC: PT SINUS MIKE MOST OF THE SHIFT 40-50'S. EPISODE OF 5 SECOND PAUSE @0330 WITH BURNING/TIGHTNESS IN HIS CHEST. PAIN RESOLVED QUICKLY AND PRN MORPHINE WAS HELD. PT DENIES PAIN THE REMAINDER OF SHIFT AND RESTED COMFORTABLY. SBP 150'S. NO EDEMA NOTED. GI: NO N/V. PT DENIES ABDOMINAL PAIN. NO BM THIS SHIFT. : PT USES HANDHELD URINAL INDEPENDENTLY. SKIN: ASSESSMENT REMAINS UNCHANGED. IV ACCESS: PG PATENT AND INFUSING IN KAIA. RAC SALINE LOCK.
--- NOTE | 2022-01-27 18:33 | NUR ---
SHIFT SUMMARY PT ALERT, SOME CONFUSION TODAY, MOSTLY NOTED WHEN FIRST WAKING UP. SP02>90% ON RA BUT PLACED ON 2L NC OCC FOR COMFORT. PT HAD 8 SECOND PAUSE ON TELE. MIKE DOWN TO 30'S. PT SYMPTOMATIC, STATES HE CANT BREATHE. MD BROWNING IN ROOM. CARDIOLOGY CALLED, STATES PT NPO AT MIDNIGHT FOR POSSIBLE PACER. URINAL AT BEDSIDE TO VOID. ABX INFUSED PER EMAR. BED ALARM ON. CALL LIGHT IN REACH.
--- NOTE | 2022-01-28 05:10 | NUR ---
SHIFT SUMMARY PT IS A&O, PT's SPEECH IS MUMBLED, ANSWERS MOST QUESTIONS APPROPRATELY, BUT HAS SOME CONFUSED STATEMENTS. AT START OF SHIFT, PT STATED THAT THERE WAS SMOKE AND BUGS ON THE CEILING, PREVIOUS RN REPORTED THAT PT STATED THEY HAVE HX OF HOSPITAL DELIRIUM. BP STABLE, HR SB-SR 50-70's, NO PAUSES, PT DENIES CP/PRESSURE THROUGHOUT THIS SHIFT. SpO2> 92% RA, PT WORE HOME CPAP THROUGHOUT SHIFT. PT NPO SINCE 0000. NO ACUTE EVENTS THIS SHIFT, WILL REPORT TO DAY SHIFT RN.
[2022-01-28 05:39] LABS: Albumin, Blood 2.8 g/dL (3.4-5.0); Anion Gap 8 mmol/L (6-16); Blood Urea Nitrogen 13 mg/dL (8-24); Bun/Creatinine Ratio 13.7 (12.0-20.0); CO2, Blood 25 mmol/L (21-32); Calcium, Blood 8.8 mg/dL (8.5-10.1); Chloride, Blood 111 mmol/L (98-108); Creatinine, Blood 0.95 mg/dL (0.60-1.20); Glomerular Filtration Rate 79 (60-); Glucose, Blood 117 mg/dL (70-99); Magnesium, Blood 2.1 mg/dL (1.6-2.4); Phosphorus, Blood 3.5 mg/dL (2.5-4.9); Potassium, Blood 3.3 mmol/L (3.5-5.5); Sodium, Blood 144 mmol/L (136-145)
[2022-01-28 06:00] LABS: Hematocrit 30.5 % (37.0-53.0); Hemoglobin 10.4 g/dL (13.5-17.5); Mean Corpuscular HGB 30.4 pg (26.0-34.0); Mean Corpuscular HGB Conc 34.1 g/dL (31.5-36.5); Mean Corpuscular Volume 89 fL (80-100); Mean Platelet Volume 11.3 fL (9.1-12.4); Platelet Count 151 K/mm3 (150-400); RDW Coefficient Variation 13.9 % (11.7-14.2); RDW Standard Deviation 45.1 fL (35.1-46.3); Red Blood Cell Count 3.42 M/mm3 (4.30-5.90); White Blood Cell Count 5.22 K/mm3 (4.00-11.30)
--- NOTE | 2022-01-28 18:08 | NUR ---
PT SUMMARY: PT STILL HAVING EPISODES OF CONFUSION AND SOME HALLUCINATIONS PT REPORTIGN THERES A CAT IN THE ROOM, PT WAS ALSO PULLING ON LINES AND TUBINGS, PULLED HIS OTHER IV LINE OUT, SET THE BED ALARM TWICE. PT IS EASILY REDIRECTABLE. PT HAD A SHOWER THIS MORNING WITH NO ISSUES, WAS ABLE TO AMBULATE OUTSIDE MOTTA ABOUT 50 FEET ON RA SATS KEPT ABOVE 90%, PT REPORTS SHORTNESS OF BREATH THAT RESOLVES AFTER RESTING. VITALS HRR 70-90'S NO EPISODES OF PAUSES, PT DENIES ANY CHEST PAIN/PRESSURE. SBP 130-160'S, AFEBRILE. PT WAS ABLE TO WORK WITH PT/OT. CARMELO WAS CALLED AND WAS GIVEN UPDATE REGARDING PT TODAY, NO PROCEDURE PLANNED OF THIS TIME, PT TO CONTINUE TO RECEIVE IV ABO TX TO COMPLETE TX COURSE. PT HAS BEEN EATING AND DRINKING ADEQUATELY. NO OTHER ISSUES REPORTED WILL REPORT TO ONCOMING SHIFT
--- NOTE | 2022-01-29 06:07 | NUR ---
SHIFT SUMMARY A/O 2-3, INTERMITTENT CONFUSION NOTED, EASILY REDIRECTABLE. TELE SR 80S-90S, DENIES CHEST PAIN/PRESSURE. TOLERATED CPAP T/O NIGHT. 1P ASSIST FOR TRANSFERS. BED IN LOWEST POSITION, ALARM ON, CALL LIGHT IN REACH. WILL CONTINUE TO MONITOR AND REPORT TO ONCOMING RN.
[2022-01-29 10:12] LABS: Albumin, Blood 3.1 g/dL (3.4-5.0); Anion Gap 6 mmol/L (6-16); Blood Urea Nitrogen 13 mg/dL (8-24); CO2, Blood 28 mmol/L (21-32); Chloride, Blood 108 mmol/L (98-108); Creatinine, Blood 1.08 mg/dL (0.60-1.20); Glomerular Filtration Rate 68 (60-); Glucose, Blood 97 mg/dL (70-99); Phosphorus, Blood 3.1 mg/dL (2.5-4.9); Potassium, Blood 3.4 mmol/L (3.5-5.5); Sodium, Blood 142 mmol/L (136-145)
[2022-01-29] MEDS ORDERED: ASPI81CH PO (13:20)
[2022-01-29] MEDS ORDERED: ACET325 PO (13:20)
[2022-01-29] MEDS ORDERED: ASPI325EC PO (13:20)
[2022-01-29] MEDS ORDERED: CLOP75 PO (13:21)
[2022-01-29] MEDS ORDERED: TAMS.4ER PO (13:21)
[2022-01-29] MEDS ORDERED: LISI5 PO (13:21)
[2022-01-29] MEDS ORDERED: Isosorbide Mono30 MG PO (13:21)
[2022-01-29] MEDS ORDERED: PANT40 PO (13:21)
[2022-01-29] MEDS ORDERED: LIPITOR80 MG PO (13:21)
[2022-01-29] MEDS ORDERED: AMLO5 PO (13:24)
[2022-01-29] MEDS ORDERED: NAPR500 PO (13:24)
[2022-01-29] MEDS ORDERED: METO50ER PO (13:24)
[2022-01-29] MEDS ORDERED: Crestor20 MG PO (13:25)
[2022-01-29] MEDS ORDERED: OMEPRAZOLE20 MG PO (13:25)
--- NOTE | 2022-01-29 14:38 | NUR ---
PT DISCHARGE TO HOME TODAY WITH DISCHARGE ORDERS AND HOME HEALTH. DISCHARGE INSTRUCTIONS DISCLOSED WITH THE PT AND CAREGIVER ROWENA. NEW MEDICATIONS SENT TO [facility]. ORDER TO PLACE ZIO PATCH BEFORE DSICHARGE FOR 30 DAYS, ZIO PATCH WAS PLACED BY [facility] NURSE, INSTRUCTIONS WERE PROVIDED WELL. PT WAS C/O CHEST ACHE THIS MORNING 05/[address] BROWNING, PT STATED IT FEELS LIKE ITS BRUISED MOST LIKELY FROM BEING RESCUCITATED UPON ADMIT. PT WAS GIVEN TYLENOL AND WAS RELIEVED. ALSO C/O SOB PT STATED HE HAS 3 TYPES OF INHALER AT HOME THAT HE TAKES FOR SOB, BREATHING TX WAS PROVIDED PER PROVIDERS RECOMMENDATION BEFORE DISCHARGE. INSTRUCTED HEMATOLOGY NURSE TO RESUME MAINTENANCE INHALER WHEN HOME. OTHER HERNANDEZ PT HAS BEEN GETTING UP FOR MEALS NO ISSUES VITALS HAS BEEN STABLE. ALL BELONGINGS SENT WITH THE PT WELL HOME CPAP. ACCOMPANIED VIA WHEELCHAIR FOR DISCHARGE.
== END 2022-01-29 14:17 | disposition home health service (06) | DRG 246 ==
LOC: ER 20:11 → ICUW 20:26 → ICUE 20:26 → PCU 20:26 → ICUW 21:19 → ICUE 01-21 17:48 → PCU 01-22 14:36
PROVIDERS: Emergency Medicine; Family Medicine; Internal Medicine; Internal Medicine Critical Care Medicine; ADMIT Internal Medicine Cardiovascular Disease
PROC: 4A023N7 Measurement of Cardiac Sampling and Pressure, Left Heart, Percutaneous Approach (ICD-10-PCS; principal; 2022-01-20)
PROC: 027034Z Dilation of Coronary Artery, One Artery with Drug-eluting Intraluminal Device, Percutaneous Approach (ICD-10-PCS; 2022-01-20)
PROC: B2111ZZ Fluoroscopy of Multiple Coronary Arteries using Low Osmolar Contrast (ICD-10-PCS; 2022-01-20)
PROC: B240ZZ3 Ultrasonography of Single Coronary Artery, Intravascular (ICD-10-PCS; 2022-01-20)
PROC: 5A12012 Performance of Cardiac Output, Single, Manual (ICD-10-PCS; 2022-01-20)
PROC: 0BH17EZ Insertion of Endotracheal Airway into Trachea, Via Natural or Artificial Opening (ICD-10-PCS; 2022-01-20)
PROC: 5A1935Z Respiratory Ventilation, Less than 24 Consecutive Hours (ICD-10-PCS; 2022-01-20)
DX: I21.19 ST elevation (STEMI) myocardial infarction involving other coronary artery of inferior wall (principal); I46.2 Cardiac arrest due to underlying cardiac condition; I49.01 Ventricular fibrillation; J96.01 Acute respiratory failure with hypoxia; J69.0 Pneumonitis due to inhalation of food and vomit; N39.0 Urinary tract infection, site not specified; I44.2 Atrioventricular block, complete; B95.2 Enterococcus as the cause of diseases classified elsewhere; I10 Essential (primary) hypertension; K21.9 Gastro-esophageal reflux disease without esophagitis; J44.9 Chronic obstructive pulmonary disease, unspecified; G47.33 Obstructive sleep apnea (adult) (pediatric); Z86.73 Personal history of transient ischemic attack (TIA), and cerebral infarction without residual deficits; I48.91 Unspecified atrial fibrillation; I34.0 Nonrheumatic mitral (valve) insufficiency; E78.00 Pure hypercholesterolemia, unspecified; Z88.8 Allergy status to other drugs, medicaments and biological substances; Z79.899 Other long term (current) drug therapy; Z79.82 Long term (current) use of aspirin; M10.9 Gout, unspecified; E87.6 Hypokalemia
CPT/HCPCS: 31500; 36415; 36600; 51702; 71045; 71046; 76937; 80047; 80048; 80053; 80061; 80069; 81001; 82550; 82553; 82803; 82947; 83036; 83605; 83735; 83880; 84132; 84145; 84484; 85014; 85025; 85027; 85347; 85520; 85610; 85730; 87040; 87077; 87086; 87186; 92610; 92950; 92978; 93005; 93010; 93246; 93306; 93454; 94002; 94003; 94640; 94660; 94664; 94760; 94762; 96374-59; 96375-59; 97110; 97162; 97166; 97530; 97535; 99152; 99153; 99291-25; A9270; C1725; C1751; C1753; C1769; C1874; C1887; C9113; C9606; J0282; J0330; J0360; J0461; J1644; J1940; J2250; J2405; J2543; J2704; J3010; J3246; J3480; J7030; J7050; Q9967

== ENCOUNTER 2022-02-02 08:35 | Emergency (ER) | payer MEDICARE, OTHER ==
[~2022-02-02] VITALS: Ht 177.8 cm; Wt 86.2 kg
[~2022-02-02 08:35] MED LIST changes: +ACET325 PO; +ASPI81CH PO; +CLOP75 PO; +Isosorbide Mono30 MG PO; +LIPITOR80 MG PO; +LISI5 PO; +OMEPRAZOLE20 MG PO; +PANT40 PO; +TAMS.4ER PO
[2022-02-02] MEDS ORDERED: LOVA40 PO (08:47)
[2022-02-02 10:56] LABS: BASOPHILS ABSOLUTE AUTO 0.01 K/mm3 (0.00-0.23); BASOPHILS PERCENT AUTO 0 % (0-2); EOSINOPHILS ABSOLUTE AUTO 0.05 K/mm3 (0.00-0.68); EOSINOPHILS PERCENT AUTO 1 % (0-6); Hematocrit 30.6 % (37.0-53.0); Hemoglobin 10.2 g/dL (13.5-17.5); IMMATURE GRAN ABSOLUTE AUTO 0.02 K/mm3 (0.00-0.10); IMMATURE GRAN PERCENT AUTO 0 % (0-1); LYMPHOCYTES ABSOLUTE AUTO 0.82 K/mm3 (0.84-5.20); LYMPHOCYTES PERCENT AUTO 16 % (21-46); MONOCYTES ABSOLUTE AUTO 0.35 K/mm3 (0.16-1.47); MONOCYTES PERCENT AUTO 7 % (4-13); Mean Corpuscular HGB 30.9 pg (26.0-34.0); Mean Corpuscular HGB Conc 33.3 g/dL (31.5-36.5); Mean Corpuscular Volume 93 fL (80-100); Mean Platelet Volume 10.4 fL (9.1-12.4); NEUTROPHILS ABSOLUTE AUTO 3.86 K/mm3 (1.96-9.15); NEUTROPHILS PERCENT AUTO 76 % (41-73); Platelet Count 171 K/mm3 (150-400); RDW Standard Deviation 47.8 fL (35.1-46.3); White Blood Cell Count 5.11 K/mm3 (4.00-11.30)
[2022-02-02 11:12] LABS: Albumin/Globulin Ratio 0.8 (0.8-1.8); Bilirubin, Total 0.5 mg/dL (0.1-1.0); Bun/Creatinine Ratio 15.1 (12.0-20.0); Calcium, Blood 8.7 mg/dL (8.5-10.1); Creatinine, Blood 0.79 mg/dL (0.60-1.20); Globulin, Blood 3.7 g/dL (2.2-4.0); Potassium, Blood 3.9 mmol/L (3.5-5.5); Total Protein, Blood 6.7 g/dL (6.4-8.2)
[2022-02-02 11:26] LABS: Influenza A, PCR NEGATIVE (NEGATIVE); Influenza B, PCR NEGATIVE (NEGATIVE); Resp Syncytial Virus, PCR NEGATIVE (NEGATIVE)
[2022-02-02 11:31] LABS: SARS-Cov-2 (COVID-19) PCR, MMC POSITIVE (NEGATIVE)
[2022-02-02] MEDS ORDERED: PAXLOVID 150-11 EACH PO (13:39)
== END 2022-02-02 16:45 | disposition home or self-care (01) ==
LOC: ER 08:35
PROVIDERS: Emergency Medicine
DX: U07.1 COVID-19 (principal); J44.9 Chronic obstructive pulmonary disease, unspecified; I25.2 Old myocardial infarction; K21.9 Gastro-esophageal reflux disease without esophagitis; F17.210 Nicotine dependence, cigarettes, uncomplicated; Z79.82 Long term (current) use of aspirin; Z79.899 Other long term (current) drug therapy; Z86.73 Personal history of transient ischemic attack (TIA), and cerebral infarction without residual deficits; Z95.5 Presence of coronary angioplasty implant and graft
CPT/HCPCS: 0241U; 36415; 71045; 80053; 83880; 84484; 85025; 93005; 93010; A9270

== ENCOUNTER → 2022-11-28 | Outpatient (CLI) | payer MEDICARE, OTHER ==
[~2022-11-28] MED LIST changes: +LOVA40 PO; +PAXLOVID 150-11 EACH PO
== END ==
LOC: LAB 13:47 → LAB SHORT 13:47
DX: C44.219 Basal cell carcinoma of skin of left ear and external auricular canal (principal)
CPT/HCPCS: 88305

== ENCOUNTER 2022-12-18 06:53 | Day surgery (SDC) | payer MEDICARE, OTHER ==
[~2022-12-18] VITALS: Ht 177.8 cm; Wt 92.5 kg
--- NOTE | 2022-12-18 09:08 | NUR ---
12/18/22 0908 Tiarra Berg LIDOCAINE 2% 1:200,000 MIXED 1:1 W/ NORMAL SALINE TO MAKE LIDOACAINE 1% 1:200,000 FOR INJECTION AT [facility] BY DR LIMON.
[2022-12-18 10:42] VITALS: BP 114/61
== END 2022-12-18 11:50 | disposition home or self-care (01) ==
LOC: ORSCSDS 06:53
PROVIDERS: Otolaryngology
PROC: 0HX3XZZ Transfer Left Ear Skin, External Approach (ICD-10-PCS; principal; 2022-12-18 08:15)
DX: C44.219 Basal cell carcinoma of skin of left ear and external auricular canal (principal); I10 Essential (primary) hypertension; I25.10 Atherosclerotic heart disease of native coronary artery without angina pectoris; G47.33 Obstructive sleep apnea (adult) (pediatric); F17.210 Nicotine dependence, cigarettes, uncomplicated; J44.9 Chronic obstructive pulmonary disease, unspecified; K21.9 Gastro-esophageal reflux disease without esophagitis; Z86.73 Personal history of transient ischemic attack (TIA), and cerebral infarction without residual deficits; I62.9 Nontraumatic intracranial hemorrhage, unspecified; E78.00 Pure hypercholesterolemia, unspecified; I25.2 Old myocardial infarction; Z79.899 Other long term (current) drug therapy
CPT/HCPCS: 88305; 88331; 88332; J1100; J2250; J2371; J2405; J2704; J3010; J7120

== ENCOUNTER → 2023-09-12 | Outpatient (CLI) | payer MEDICARE, OTHER ==
[2023-09-12 16:03] LABS: BASOPHILS ABSOLUTE AUTO 0.04 K/mm3 (0.00-0.23); BASOPHILS PERCENT AUTO 1 % (0-2); EOSINOPHILS PERCENT AUTO 3 % (0-6); Hematocrit 39.3 % (37.0-53.0); Hemoglobin 12.7 g/dL (13.5-17.5); IMMATURE GRAN ABSOLUTE AUTO 0.02 K/mm3 (0.00-0.10); IMMATURE GRAN PERCENT AUTO 0 % (0-1); LYMPHOCYTES ABSOLUTE AUTO 1.66 K/mm3 (0.84-5.20); LYMPHOCYTES PERCENT AUTO 25 % (21-46); MONOCYTES ABSOLUTE AUTO 0.42 K/mm3 (0.16-1.47); MONOCYTES PERCENT AUTO 6 % (4-13); Mean Corpuscular HGB 30.2 pg (26.0-34.0); Mean Corpuscular HGB Conc 32.3 g/dL (31.5-36.5); Mean Corpuscular Volume 94 fL (80-100); Mean Platelet Volume 10.6 fL (9.1-12.4); NEUTROPHILS ABSOLUTE AUTO 4.23 K/mm3 (1.96-9.15); NEUTROPHILS PERCENT AUTO 64 % (41-73); Platelet Count 154 K/mm3 (150-400); RDW Coefficient Variation 15.1 % (11.7-14.2); White Blood Cell Count 6.57 K/mm3 (4.00-11.30)
[2023-09-12 16:15] LABS: Albumin/Globulin Ratio 1.3 (0.8-1.8); Bilirubin, Total 0.6 mg/dL (0.1-1.0); Bun/Creatinine Ratio 12.3 (12.0-20.0); Calcium, Blood 9.3 mg/dL (8.5-10.1); Creatinine, Blood 1.06 mg/dL (0.60-1.20); Globulin, Blood 3.1 g/dL (2.2-4.0); Thyroid Stimulating Hormone 1.01 uIU/mL (0.360-4.800); Total Protein, Blood 7.1 g/dL (6.4-8.2)
== END | disposition home or self-care (01) ==
LOC: LAB SHORT 15:20 → LAB 15:20
PROVIDERS: Nurse Practitioner Family
DX: R42 Dizziness and giddiness (principal); R53.83 Other fatigue
CPT/HCPCS: 80053; 84443; 85025

== ENCOUNTER → 2024-03-23 | Outpatient (CLI) | payer MEDICARE, OTHER | LOC: LAB 19:29 → LAB SHORT 19:29 | DX: R30.0 Dysuria (principal) | CPT/HCPCS: 87086 ==